=== PATIENT | male | born 1965 | race Caucasian/White ===

== ENCOUNTER → 2016-09-14 | Outpatient (REF) | payer BC ==
[~2016-09-14] MED LIST: AMLO1TAB36 PO; AMLO5CAP2 PO; ATOR1TAB21 PO; FENO160T10 PO
== END ==
LOC: M SMT 13:05
PROVIDERS: ATTEND Nurse Practitioner Women's Health
DX: R97.20 Elevated prostate specific antigen [PSA] (principal)

== ENCOUNTER → 2016-12-01 | Outpatient (CLI) | payer BC | LOC: M SMT 09:22 | PROVIDERS: ATTEND Urology | DX: R97.20 Elevated prostate specific antigen [PSA] (principal) ==

== ENCOUNTER → 2017-01-28 | Outpatient (CLI) | payer BC ==
--- NOTE | 2017-01-28 12:04 | REP ---
Prostate sonography: History: Elevated PSA Sonographic findings: Trans rectal prostate sonography demonstrates unremarkable seminal vesicles. Prostate gland is heterogeneously enlarged with calcifications and cystic changes noted. Glandular dimensions are measured at 5.6 x 3.9 x 5.5 cm with a calculated glandular volume of 63.4 ml. There are two nodules on the right seen by ultrasound measuring 0.8 and 0.5 cm. There are two nodules seen on the left side as well measuring 0.6 and 0.3 cm in greatest diameter. Transrectal sonographic guidance provided to Dr. Márquez who performed trans rectal ultrasound guided needle biopsy procedure . Signed by Roverto Castellon MD 01/28/2017 11:56 A
== END ==
LOC: M SMT PRO 08:53
PROVIDERS: ATTEND Urology
DX: C61 Malignant neoplasm of prostate (principal)
CPT/HCPCS: 76872; 76942; G0416

== ENCOUNTER 2017-03-08 05:57 | Inpatient (IN) | payer BC ==
[2017-03-08] VITALS (7 sets, daily range): BP systolic 145–179; BP diastolic 80–87
[~2017-03-08] VITALS: Ht 174 cm; Wt 109.0 kg
[~2017-03-08 05:57] MED LIST changes: -AMLO1TAB36 PO; +AMLO1TAB37 PO; +ASPI1TAB PO; +CENTTAB PO; +FISH5CAP PO; +FLAX10002 PO
[2017-03-08] MEDS ORDERED: LR 1,000 ML IV ONE (06:15)
[2017-03-08] MEDS ORDERED: PROPOFOL 200 MG/20 ML VIAL As Ordered ONE (07:09)
[2017-03-08] MEDS ORDERED: ROCURONIUM BROMIDE 50 MG/5 ML VIAL/SYRINGE As Ordered ONE ×3 (07:09→12:51)
[2017-03-08] MEDS ORDERED: METHYLENE BLUE 0.5% (5MG/ML) 10 ML AMP (PROVAYBLUE)(Q9968 PER 1MG) As Ordered ONE (07:09)
[2017-03-08] MEDS ORDERED: ONDANSETRON 4MG/2ML VIAL (J2405) As Ordered ONE ×2 (07:09→08:07)
[2017-03-08] MEDS ORDERED: LIDOCAINE 2% INJ 100 MG/5 ML SDV (FOR ANES.) As Ordered ONE (07:09)
[2017-03-08] MEDS ORDERED: fentaNYL 100 MCG/2 ML INJECTION (J3010) As Ordered ONE (07:10)
[2017-03-08] MEDS ORDERED: MIDAZOLAM INJ 2 MG/2 ML VIAL (J2250) As Ordered ONE (07:10)
[2017-03-08] MEDS ORDERED: dexameTHASONE 4 MG/ML 1ML VIAL (J1100) As Ordered ONE (07:40)
[2017-03-08] MEDS ORDERED: ePHEDrine SULFATE 25 MG/5 ML(5MG/ML) SYRINGE As Ordered ONE ×2 (07:58→08:25)
[2017-03-08] MEDS ORDERED: HYDROmorphone HCL 2 MG/ML 1ML VIAL (J1170) As Ordered ONE (08:38)
[2017-03-08] MEDS ORDERED: MORPHINE 2 MG/ML 1ML SYRINGE IV PRN (12:30)
[2017-03-08] MEDS ORDERED: fentaNYL 100 MCG/2 ML INJECTION (J3010) IV PRN (12:30)
[2017-03-08] MEDS ORDERED: PERCOCET 5MG/325MG TAB PO PRN (12:30)
[2017-03-08] MEDS ORDERED: LR 1,000 ML IV SCH (12:30)
[2017-03-08] MEDS ORDERED: ONDANSETRON 4MG/2ML VIAL (J2405) IV PRN ×2 (12:30)
[2017-03-08] MEDS ORDERED: MORPHINE 4 MG/ML 1ML SYRINGE IV PRN (12:30)
[2017-03-08 12:49] LABS: MEAN CORPUSCULAR HEMOGLOBIN 31.6 pg (27.0-33.0); MEAN CORPUSCULAR HGB CONC 33.5 g/dl (32.0-36.5); MEAN CORPUSCULAR VOLUME 94.3 fl (80.0-96.0); RED CELL DISTRIBUTION WIDTH 12.7 % (11.5-14.5); WHITE BLOOD COUNT 12.1 K/mm3 (4.0-10.0)
[2017-03-08] MEDS ORDERED: GLYCOPYRROLATE INJ 0.2 MG/ML 2 ML VIAL As Ordered ONE (12:51)
[2017-03-08] MEDS ORDERED: NEOSTIGMINE 1MG/ML 5 ML SYRINGE (J2710) As Ordered ONE (12:51)
[2017-03-08 12:58] LABS: ANION GAP 8 MEQ/L (8-16); BLOOD UREA NITROGEN 14 MG/DL (7-18); CALCIUM LEVEL 8.7 MG/DL (8.5-10.1); CARBON DIOXIDE LEVEL 26 MEQ/L (21-32); CHLORIDE LEVEL 107 MEQ/L (98-107); GLOMERULAR FILTRATION RATE > 60.0 (>56); GLUCOSE, FASTING 166 MG/DL (70-105); POTASSIUM SERUM 4.3 MEQ/L (3.5-5.1); SODIUM LEVEL 141 MEQ/L (136-145)
[2017-03-08] MEDS: ACETAMINOPHEN 650MG ER TAB (TYLENOL ARTHRITIS) PO SCH ×2 (14:18→21:12)
[2017-03-08] MEDS: KCL 20MEQ IN D5/0.45NS 1000ML 1,000 ML IV SCH (14:18)
[2017-03-08] MEDS: CIPROFLOXACIN 500 MG TAB PO SCH (18:24)
[2017-03-08] MEDS: KETOROLAC 30 MG/ML VIAL (J1885) IV SCH (18:24)
[2017-03-08] MEDS ORDERED: PANTOPRAZOLE 40MG INJ (PROTONIX) (C9113) IV SCH (21:00)
[2017-03-09] MEDS: KCL 20MEQ IN D5/0.45NS 1000ML 1,000 ML IV SCH ×2 (01:41→08:53)
[2017-03-09] MEDS: KETOROLAC 30 MG/ML VIAL (J1885) IV SCH ×2 (01:41→09:47)
[2017-03-09 02:00] VITALS: BP 171/83
[2017-03-09] MEDS: ACETAMINOPHEN 650MG ER TAB (TYLENOL ARTHRITIS) PO SCH ×2 (05:52→14:22)
[2017-03-09] MEDS: CIPROFLOXACIN 500 MG TAB PO SCH ×2 (05:52→17:16)
[2017-03-09 06:00] VITALS: BP 158/82
[2017-03-09 06:56] LABS: MEAN CORPUSCULAR HEMOGLOBIN 31.8 pg (27.0-33.0); MEAN CORPUSCULAR VOLUME 93.5 fl (80.0-96.0); RED CELL DISTRIBUTION WIDTH 12.8 % (11.5-14.5); WHITE BLOOD COUNT 9.8 K/mm3 (4.0-10.0)
[2017-03-09 07:05] LABS: ANION GAP 4 MEQ/L (8-16); BLOOD UREA NITROGEN 12 MG/DL (7-18); CALCIUM LEVEL 8.5 MG/DL (8.5-10.1); CARBON DIOXIDE LEVEL 30 MEQ/L (21-32); CHLORIDE LEVEL 107 MEQ/L (98-107); GLOMERULAR FILTRATION RATE > 60.0 (>56); GLUCOSE, FASTING 92 MG/DL (70-105); POTASSIUM SERUM 3.7 MEQ/L (3.5-5.1); SODIUM LEVEL 141 MEQ/L (136-145)
--- NOTE | 2017-03-09 08:34 | RO ---
DATE OF PROCEDURE: 03/08/2017 PREPROCEDURE DIAGNOSIS: Prostate cancer. POSTPROCEDURE DIAGNOSIS: Prostate cancer. SURGERY PERFORMED: Robotic-assisted radical prostatectomy plus bilateral pelvic lymph node dissections. SURGEON: Martin Márquez MD MEN'S SWIM COACH: Monserrat Berkowitz NP ANESTHESIA: General. COMPLICATIONS: None. ESTIMATED BLOOD LOSS: 100 mL HISTORY OF PRESENT ILLNESS: This is a 51-year-old male patient with clinical stage [id number] prostate cancer, [place] 7. The patient has consented for a robotic-assisted radical prostatectomy, plus bilateral pelvic lymph node dissections. PROCEDURE DESCRIPTION: With the patient under general anesthesia in supine modified low lithotomy position, after prepping and draping the area of concern, which included the entire genitalia and abdomen, we started by introducing a #16-[place] Stevenson catheter in the bladder, inflated the balloon to 10 mL. The patient also had an orogastric tube to drain the gastric contents. We then did an incision about 2 cm in length in the midline, infraumbilically. Through this incision, we opened the anterior aponeurosis of the rectus muscle for about 2 cm, split the midline and with finger dissection we dissected the Retzius space. We then proceeded to actually introduce a balloon SpaceMaker and spread out the Retzius space further on. We then placed a balloon trocar and inflated the balloon trocar to 40 mL. We then proceeded to introduce CO2 through the balloon trocar and the Retzius space. With a hand held robotic camera 10 mm in diameter at 0 degrees, we placed the other trocar under videoendoscopic assistance. Two 8 mm metallic trocars were placed on the right side in a fan-shaped manner, 8 cm away fro each other. A VersaStep was placed on the left side in the midclavicular line and an 8 mm metallic trocar was placed 8 cm away from this one in a fan shaped manner on the left side. We then proceeded to place the patient in steep Trendelenburg position. We then proceeded to dock the robot. On the left arm we used monopolar scissors, on the right arm we used bipolar PK and a fenestrated forceps in the third arm. We started by dissecting the periprostatic fat and taking the periprostatic away from the prostate gland. We identified both endopelvic fascias on the left and the right. We opened the endopelvic fascia on the left from base to apex and the right also from base to apex. We then proceeded to secure the dorsal vein complex with a CT-1 needle and a #0 Vicryl times two. We then proceeded to open the anterior bladder neck with monopolar scissors and deflated the balloon and grabbed the Stevenson catheter with the third arm and placed the prostate into traction by pulling on the Setvenson catheter. We then proceeded to cut the posterior bladder neck with monopolar scissors and posterior detrusor muscle. We landed into the seminal vesicles and the vas deferens. We cut both vas deferens and seminal vesicles and grabbed it with the third arm and pulled it into traction anteriorly to actually put into traction the posterior Denonvilliers fascia. We then cut with monopolar scissors the posterior Denonvilliers fascia and the posterior Denonvilliers fascia from the prostate gland from base to apex. We then proceeded to secure the prostatic pedicles with extra large Hem-o-Loks on the right side. We then proceeded to do an anterior fascial approach on the right and dissected the prostate from base to apex. Once the prostate was attached to the dorsal vein complex, we cut the dorsal vein complex with monopolar scissors and cut the urethra. We then placed the seminal vesicles and the prostate into an Endo Catch bag. We then proceeded to do our posterior reconstruction of the Denonvilliers fascial using a V-Loc #3-0 in a running fashion. We then proceeded to do our urethral vesicle anastomosis with a Quill stitch, #2-0 double needle of several barbed suture starting at 6-o'clock, outside in with the bladder neck and inside out in the urethra, running it across 160 degrees and tying a knot. We tested anastomosis. We then placed a #20-[place] Stevenson catheter into the bladder and inflated the balloon to 20 mL. We then proceeded to do the left pelvic lymph nodes dissection. The limits of dissection were the hypogastric artery superiorly, inferior in the obturator ligament, posteriorly the pelvic side wall and anteriorly the iliac artery. We extracted obturator lymph nodes, hypogastric lymph nodes, and iliac lymph nodes. We secured hemostasis with bipolar PK and Hem-o-Loks. We placed the left pelvic lymph node dissection in a 10 mm Endo Catch bag. We performed the same dissection on the contralateral side on the right side, securing hemostasis with Hem-o-Loks and bipolar PK. The boundaries of the dissection were the same. We then proceeded to extract the third arm and place a 15 blade round HEIDI drain into the pelvis through the third trocar. We then took all the instruments out and undocked the robot. We took all the trocars out, secured the drain with #3-0 nylon stitch to the skin. We then took all the specimens inside each bag through the midline incision. The prostate and seminal vesicles were sent separate from left pelvic lymph node dissection and right pelvic lymph node dissection. We then closed the fascia of the rectus muscle with 0 Vicryl in a UR6 needle in a running fashion. We closed the skin with #4-0 Monocryl subcuticular stitches. We placed Mastisol, Steri-Strips, Telfa, and Tegaderm on each side. PLAN: The patient will pass through recovery room with a HEIDI drain and Stevenson catheter to gravity. Stevenson catheter inflated balloon is 20 mL. There were no complications. Estimated blood loss was 100 mL. MTDD
[2017-03-09] MEDS: oxyCODONE 5MG TAB PO PRN ×2 (08:52→17:17)
[2017-03-09 10:00] VITALS: BP 145/82
[2017-03-09 14:00] VITALS: BP 139/76
[2017-03-09 20:00] VITALS: BP 136/80
[2017-03-09] MEDS ORDERED: CIPR500T3 PO (20:00)
[2017-03-09] MEDS ORDERED: TYLE650T35 PO (20:00)
--- NOTE | 2017-03-10 11:12 | DSES ---
DATE OF ADMISSION: 03/08/2017 DATE OF DISCHARGE: 03/09/2017 ADMISSION DIAGNOSIS: Prostate cancer. DISCHARGE DIAGNOSIS: Prostate cancer. ADMITTING SURGEON: Dr. Martin Márquez DISCHARGE SURGEON: Dr. Martin Márquez SURGERY PERFORMED: Robotic-assisted radical prostatectomy plus bilateral pelvic lymph node dissection. SURGERY PERFORMED BY: Dr. Martin Márquez COMPLICATIONS: None. HISTORY OF PRESENT ILLNESS: This is a 51-year-old male patient with a history of prostate cancer clinical Stage [id number], [place] 7, (4 + 3). The patient had consented for robotic-assisted radical prostatectomy plus bilateral pelvic lymph node dissection. For this reason, the surgery was carried out on 03/08/2017 and the patient was admitted after this. HOSPITAL COURSE: The patient did very well. By postoperative day #1, he was tolerating a regular diet and ambulating very well with a Stevenson catheter to gravity. The Michele-Guaman (J-P) drain was putting out only 70 mL per shift. His urine output was 1300 and 1650. His pain was tolerated with by mouth pain medication. No nausea and no vomiting. For this reason, he requested to go home and we agreed upon this. The patient will go home with the following medications. Stevenson catheter to gravity. No heavy weight lifting above 20 pounds. He may shower in three days. He will take ciprofloxacin 500 mg one tablet by mouth twice a day for ten days and Tylenol 650 mg one tablet by mouth every 8 hours as needed for pain. The patient will follow up in 7-10 days at [facility] for removal of the Stevenson catheter. There were no complications during the surgery or hospitalization.
== END 2017-03-09 20:40 | disposition home or self-care (01) | DRG 480 ==
LOC: M OR 05:57 → M MS5PR 13:30
PROVIDERS: ADMIT Urology; ATTEND Urology
PROC: 07BC4ZZ Excision of Pelvis Lymphatic, Percutaneous Endoscopic Approach (ICD-10-PCS; 2017-03-08)
PROC: 0VT34ZZ Resection of Bilateral Seminal Vesicles, Percutaneous Endoscopic Approach (ICD-10-PCS; 2017-03-08)
PROC: 8E0W4CZ Robotic Assisted Procedure of Trunk Region, Percutaneous Endoscopic Approach (ICD-10-PCS; 2017-03-08)
PROC: 0VT04ZZ Resection of Prostate, Percutaneous Endoscopic Approach (ICD-10-PCS; principal; 2017-03-08 07:30)
DX: C61 Malignant neoplasm of prostate (principal)

== ENCOUNTER → 2017-04-15 | Outpatient (REF) | payer BC ==
[~2017-04-15] MED LIST changes: +CIPR500T3 PO; +TYLE650T35 PO
== END ==
LOC: M SMT 16:50
PROVIDERS: ATTEND Urology
DX: C61 Malignant neoplasm of prostate (principal)

== ENCOUNTER → 2021-11-18 | Outpatient (CLI) | payer BC, OTHER ==
[~2021-11-18] MED LIST changes: +ACET650T61 PO; -AMLO5CAP2 PO; +AMLO5CAP44 PO; +AMLO5CAP53; -ASPI1TAB PO; +ASPI81TA26 PO; +CLAR10CA3 PO; +ECOT81TA5 PO; +KP F1200 PO; -TYLE650T35 PO; +VITMTA PO
== END ==
LOC: M LABSMTC 09:40
PROVIDERS: ATTEND Anesthesiology
DX: Z01.818 Encounter for other preprocedural examination (principal); Z11.52 Encounter for screening for COVID-19

== ENCOUNTER 2021-11-23 11:12 | Day surgery (SDC) | payer OTHER ==
[~2021-11-23] VITALS: Ht 172.7 cm; Wt 105.4 kg
[~2021-11-23 11:12] MED LIST changes: +NS 1,000 ML IV ONE
[2021-11-23] MEDS ORDERED: propofoL 200 MG/20 ML VIAL As Ordered ONE (14:25)
[2021-11-23 15:00] VITALS: BP 164/93
== END 2021-11-23 15:08 | disposition home or self-care (01) ==
LOC: M OPP 11:12
PROVIDERS: ATTEND Internal Medicine Gastroenterology
DX: Z12.11 Encounter for screening for malignant neoplasm of colon (principal); Z86.010 Personal history of colon polyps; K57.30 Diverticulosis of large intestine without perforation or abscess without bleeding; K64.0 First degree hemorrhoids; Z79.82 Long term (current) use of aspirin; Z79.899 Other long term (current) drug therapy; Z85.46 Personal history of malignant neoplasm of prostate

== ENCOUNTER → 2022-07-27 | Outpatient (REF) | payer OTHER ==
[~2022-07-27] MED LIST changes: -NS 1,000 ML IV ONE
[2022-07-27 21:22] LABS: FERRITIN 259.5 NG/ML (10.5-307.3); HEPATITIS B CORE ANTIBODY IGM NEGATIVE (NEGATIVE); HEPATITIS B SURFACE ANTIGEN NEGATIVE (NEGATIVE)
[2022-07-27 22:47] LABS: HEPATITIS C VIRUS ABY INDEX < 0.8 INDEX (<0.8)
== END ==
LOC: M LAB REF 16:21
PROVIDERS: ATTEND Internal Medicine
DX: K75.81 Nonalcoholic steatohepatitis (NASH) (principal); K76.0 Fatty (change of) liver, not elsewhere classified